=== PATIENT | male | born 1975 | race Caucasian/White ===

== ENCOUNTER 2017-03-30 11:26 | Inpatient (IN) | payer OTHER ==
[~2017-03-30] VITALS: Ht 167.6 cm; Wt 70.8 kg
[~2017-03-30 11:26] MED LIST: MOTRIN800 MG PO; PERCOCET 325 MG1 TA2 PO; ZOFRAN ODT4 MG PO
--- NOTE | 2017-03-30 11:38 | NUR ---
PT ANATOLIYA FROM WORK S/P SYNCOPAL EPISODE. STATES HE WAS WALKING TO THE BATHROOM WHEN HE STARTED TO FEEL DIZZY. REPORTS THAT HE SAT DOWN AND THEN WOKE UP LAYING DOWN WITH HIS FEET UP IN THE AIR. CO-WORKERS STATED THAT HE WAS OUT FOR ABOUT 30 SECONDS AND DENIED ANY SEIZURE-LIKE ACTIVITY. DENIES ANY CP, FELT SOB AT THE TIME. DENIES ANY N/V CURRENTLY. PER EMS FACTORY HAD A STRONG SMELL OF OIL AND FUMES PRESENT. RA SAT 99%.
--- NOTE | 2017-03-30 11:42 | NUR ---
PORT CXR IN TO EVAL.
[2017-03-30 11:48] LABS: ABSOLUTE BASOPHIL COUNT 0 /CUMM (0.0-0.2); ABSOLUTE EOSINOPHIL COUNT 0.1 /CUMM (0.0-0.7); ABSOLUTE GRANULOCYTE CT 6.5 /CUMM (1.4-6.5); ABSOLUTE LYMPH COUNT 1.7 /CUMM (1.2-3.4); ABSOLUTE MONOCYTE COUNT 0.1 /CUMM (0.10-0.60); BASOPHIL % 0.3 % (0.0-2.0); EOSINOPHIL % 0.6 % (0-5); GRANULOCYTE % 77.4 % (42.2-75.2); HEMATOCRIT 38.8 % (42-52); MEAN CORPUSCULAR HGB 25.8 PG (27.0-31.0); MEAN CORPUSCULAR HGB CONC 33.2 G/DL (33.0-37.0); MEAN CORPUSCULAR VOLUME 77.9 FL (80.0-94.0); PLATELET COUNT 487 /CUMM (130-400); RED BLOOD CELL CT 4.99 /CUMM (4.70-6.10); WHITE BLOOD CELL COUNT 8.4 /CUMM (4.8-10.8)
[2017-03-30] MEDS ORDERED: DIOVAN160 MG PO (12:09)
[2017-03-30] MEDS ORDERED: HYDROCHLOROTH12.5 M3 PO (12:09)
[2017-03-30] MEDS ORDERED: FENOFIBRATE145 M1 PO (12:09)
--- NOTE | 2017-03-30 12:11 | ED AMS/SEIZURE/WEAK/DIZZY ---
See Addendum History of Present Illness General Chief Complaint: Syncope and Near-Syncope Stated Complaint: BIBA SYNCOPAL EPISODE Source: patient Exam Limitations: no limitations Allergies Coded Allergies: NO KNOWN ALLERGIES (12/31/14) Reconcile Medications Fenofibrate Nanocrystallized (Fenofibrate) 145 MG TABLET 1 TAB PO DAILY CHOLESTEROL (Reported) Hydrochlorothiazide 12.5 MG CAPSULE 1 CAP PO DAILY WATER RETENTION (Reported) Valsartan (Diovan) 160 MG TABLET 1 TAB PO DAILY HEART (Reported) Triage Note: PT BIBA FROM WORK S/P SYNCOPAL EPISODE. STATES HE WAS WALKING TO THE BATHROOM WHEN HE STARTED TO FEEL DIZZY. REPORTS THAT HE SAT DOWN AND THEN WOKE UP LAYING DOWN WITH HIS FEET UP IN THE AIR. CO-WORKERS STATED THAT HE WAS OUT FOR ABOUT 30 SECONDS AND DENIED ANY SEIZURE-LIKE ACTIVITY. DENIES ANY CP, FELT SOB AT THE TIME. DENIES ANY N/V CURRENTLY. PER EMS FACTORY HAD A STRONG SMELL OF OIL AND FUMES PRESENT. RA SAT 99%. Triage Nurses Notes Reviewed? yes HPI: This patient is a 41-year-old male who presented to the emergency department today brought in by ambulance for evaluation of syncope at work. The patient reported that he was feeling dizzy, so he got up to go to the bathroom. He reported that he felt he was going to pass out, so he sat down. He reported that the symptoms was also started up to continue going to the bathroom, felt like he was 1 pass out again, sat down, and it was lasting that he remembers. His coworkers said that he was out for approximately 30 seconds with no seizure- like activity. The patient did not hit his head. He reported the dizziness has resolved. He reported that this has happened to him since he was a child with these dizzy spells. He does not know if he has never passed out from them or not before. He reported that he was feeling nauseous. He gets a discomfort going from his chest up to his neck. He reported that he feels, "weird." The patient denied any visual changes or blurry vision. No vomiting or abdominal pain. He denied any difficulty breathing. (CRUZ ELIZONDO,ANA MARIA) Vital Signs & Intake/Output Vital Signs & Intake/Output Vital Signs Date Time Temp Pulse Resp B/P B/P Pulse O2 O2 Flow FiO2 Mean Ox Delivery Rate 05/02 0800 Room Air 03/31 0759 98.4 69 16 120/98 95 Room Air 03/31 0143 97.9 76 20 100/70 98 Room Air 03/30 1737 98.2 87 15 109/70 98 Room Air 03/30 1732 Room Air 03/30 1627 Room Air 03/30 1625 97.0 86 22 120/81 Room Air 03/30 1506 96.7 82 18 112/71 97 Room Air 03/30 1236 108 16 94/59 97 Room Air 03/30 1128 97.0 110 18 114/64 99 Room Air ED Intake and Output 03/31 0000 03/30 1200 Intake Total 1420 Output Total Balance 1420 Intake, IV 1300 Intake, Oral 120 Patient 156 lb 156 lb Weight Weight Reported by Patient Reported by Patient Measurement Method Past History Travel History Traveled to [place] past 21 day No Medical History Any Pertinent Medical History? see below for history Cardiovascular: hypertension Renal: KIDNEY STONES Surgical History Surgical History: non-contributory Psychosocial History What is your primary language Lao Tobacco Use: Never used Family History Hx Contributory? No (ANA MARIA ARROYO PA-C) Review of Systems Review of Systems Constitutional: Reports: no symptoms. EENTM: Reports: no symptoms. Respiratory: Reports: no symptoms. Cardiovascular: Reports: no symptoms. GI: Reports: see HPI. Genitourinary: Reports: no symptoms. Musculoskeletal: Reports: no symptoms. Skin: Reports: no symptoms. Neurological/Psychological: Reports: see HPI. All Other Systems: Reviewed and Negative (ANA MARIA ARROYO PA-C) Physical Exam Physical Exam General Appearance: well developed/nourished, no apparent distress, alert, awake Comments: Well-developed well-nourished person in no acute distress HEENT: Normal EENT exam, head normocephalic/atraumatic with no bony deformities or step-offs of the skull, no tenderness to palpation over the scalp, moist mucous membranes PERRLA bilaterally. EOMI with no nystagmus Nose is atraumatic. Neck: Supple, no lymphadenopathy. No midline tenderness. Full range of motion Back: Normal inspection Cardiovascular: Regular rate and rhythm with no murmurs, rubs, or gallops. No carotid bruits Respiratory: No respiratory distress. Chest nontender. Lungs clear to auscultation bilaterally with no wheezes, rales, rhonchi Abdomen: Soft, nontender and nondistended Extremity: Normal and equal pulses. Neuro: Alert oriented x3, motor sensory normal, cranial nerves II through XII grossly intact. Skin: No appreciable rash on exposed skin, skin is warm and dry. Psych: Mood and affect is normal, memory and judgment is normal. Core Measures ACS in differential dx? Yes CVA/TIA Diagnosis: No Severe Sepsis Present: No Septic Shock Present: No (CRUZ ELIZONDO,ANA MARIA) Progress Differential Diagnosis: arrythmia, alcohol intoxication, anemia, benign positional vertigo, CVA/stroke, dehydration, drug intoxication, encephalitis, electrolyte imbalance, GI bleed, hypoglycemia, hypoxia, intracranial Hem., intracranial mass/tumor, labrynthitis, meningitis, Meniere's disease, migraine DHALIWAL, multiple sclerosis, pneumonia, postural hypotension, sepsis, seizure disorder, subarachnoid Hem., UTI/pyelo, vertebrobasilar insuff Diagnostic Imaging: Viewed by Me: Radiology Read, CT Scan. Discussed w/RAD: Radiology Read, CT Scan. Radiology Impression: PATIENT: RUTHY TERESA PRESENT AGE: 41 PATIENT ACCOUNT NO: [id number] : 73 LOCATION: [facility] ORDERING PHYSICIAN: ANA MARIA ARROYO PA-C SERVICE DATE: 03/30/17 EXAM TYPE: CAT - CT HEAD WO IV CONTRAST EXAMINATION: CT HEAD WITHOUT CONTRAST CLINICAL INFORMATION: Syncope and dizziness. Evaluate for intracranial hemorrhage. COMPARISON: No relevant prior imaging is available. TECHNIQUE: Contiguous axial imaging was performed from the skull base to vertex without intravenous administration of contrast. DLP: 600.71 mGy-cm FINDINGS: There is no acute intracranial hemorrhage or abnormal extra-axial collection. No intracranial mass effect or midline shift. Lateral and third ventricles are normal. No hydrocephalus. Morse-white matter differentiation is preserved and there is no evidence of acute territorial infarct. The calvarium and skull base are intact. Mastoid air cells and middle ear cavities are well aerated. Visualized paranasal sinuses are well aerated. IMPRESSION: Normal CT scan of the head. DICTATED BY: BAN CAGE,FADI Abbott DATE/TIME DICTATED:03/30/171244 WHISKEY FILTERER: CINTHYA DATE/TIME TRANSCRIBED:03/30/171244 CONFIDENTIAL, DO NOT COPY WITHOUT APPROPRIATE AUTHORIZATION. <Electronically signed in Other Vendor System> SIGNED BY: FADI CEVALLOS MD 03/30/17 1250 CXR Impression: PATIENT: RUTHY TERESA PRESENT AGE: 41 PATIENT ACCOUNT NO: [id number] : 73 LOCATION: [facility] ORDERING PHYSICIAN: ANA MARIA ARROYO PA-C SERVICE DATE: 03/30/17 EXAM TYPE: RAD - XRY- PORTABLE CHEST XRAY EXAMINATION: XR PORTABLE CHEST CLINICAL INFORMATION: Disease syncope COMPARISON: None TECHNIQUE: Portable frontal view of the chest was obtained. FINDINGS: No acute finding. Lung barajas are grossly clear. No obvious failure or infiltrate. No effusion. IMPRESSION: Negative acute portable chest DICTATED BY: LEON ROGEL MD DATE/TIME DICTATED:03/30/171205 WHISKEY FILTERER:CINTHYA DATE/TIME TRANSCRIBED:03/30/171205 CONFIDENTIAL, DO NOT COPY WITHOUT APPROPRIATE AUTHORIZATION. <Electronically signed in Other Vendor System> SIGNED BY: LEON ROGEL MD 03/30/17 120 Initial ED EKG: normal axis, normal intervals, normal sinus rhythm, no ST T wave changes, 96 BPM Comments: 03/30/2017 1:32:43 PM: DR FRANCIS AT THE BEDSIDE FOR [id number] EVALUATION (CRUZ ELIZONDO,ANA MARIA) Plan of Care: Orders Procedure Date/time Status MISTAKE 03/31 0600 Active CBC WITHOUT DIFFERENTIAL 03/31 0600 Complete BASIC ELECTROLYTES PLUS BUN&CR 03/31 0600 Complete Hemoccult 03/31 UNK Active Heart Healthy Diet 03/30 D Active TROPONIN LEVEL 03/30 1800 Complete PROLACTIN 03/30 1800 Complete EKG 03/30 1800 Active Vital Signs 03/30 1728 Active Teach/Educate 03/30 172 Active Pain Treatment and Response 03/30 172 Active Nutritional Intake, Monitor 03/30 172 Active Isolation 03/30 1728 Active Intake & Output 03/30 1728 Active Patient Care Conference 03/30 1728 Active Activity/Ambulation 03/30 1728 Active Change service to 03/30 1710 Active Patient Data 03/30 1552 Active URINALYSIS 03/30 1543 Complete ELECTROENCEPHALOGRAM 03/30 1539 Complete Telemetry/Admissions Assistant 03/30 1516 Active Add-on Test (ER Only) 03/30 1432 Active ED Holding Orders 03/30 1411 Active Admit to inpatient 03/30 1411 Active Code Status 03/30 1411 Active Pathway - chart 03/30 1406 Active Code Status 03/30 1406 Complete Patient Data 03/30 1354 Active Add-on Test (ER Only) 03/30 1302 Active URINE DRUGS OF ABUSE 03/30 1302 Complete Intake & Output 03/30 1224 Active Add-on Test (ER Only) 03/30 1211 Active MIXED VENOUS BLOOD GAS (GEN) 03/30 1157 Active MISTAKE 03/30 1157 Active TOTAL IRON BINDING CAPACITY 03/30 1137 Complete PROLACTIN 03/30 1137 Complete FERRITIN 03/30 1137 Complete SERUM IRON 03/30 1137 Complete ETHANOL 03/30 1137 Complete TROPONIN LEVEL 03/30 1133 Complete COMPREHENSIVE METABOLIC PANEL 03/30 1133 Complete CBC WITHOUT DIFFERENTIAL 03/30 1133 Complete EKG 03/30 1133 Active House Staff 03/30 UNK Active VTE Mechanical Prophylaxis 03/30 UNK Active Current Medications Sig/Issac Start time Last Medication Dose Stop Time Status Admin Fenofibrate 145 MG DAILY 03/31 1000 AC 03/31 (Tricor) 0920 Heparin Sodium 5,000 UNIT Q8 03/30 2200 AC 03/31 (Porcine) 0604 Acetaminophen 650 MG Q6 03/30 1800 AC (Tylenol) Sodium Chloride 1,000 ML Q10H 03/30 1515 AC 03/31 (Normal Saline 0.9%) 03/31 1114 0604 Laboratory Tests 03/31/17 0628: Anion Gap 11, Estimated GFR > 60, BUN/Creatinine Ratio 15.5, CBC w Diff NO MAN DIFF REQ, RBC 4.56 L, MCV 78.8 L, MCH 25.3 L, RDW 14.4, MPV 9.5, Gran % 42.6, Lymphocytes % 47.0, Monocytes % 6.5, Eosinophils % 2.7, Basophils % 1.2, Absolute Granulocytes 2.7, Absolute Lymphocytes 3.0, Absolute Monocytes 0.4, Absolute Eosinophils 0.2, Absolute Basophils 0.1, PUBS MCHC 32.2 L 03/30/17 1818: Troponin I < 0.01, Prolactin 16.5 03/30/17 1520: Urine Opiates Screen < 100.00, Methadone Screen < 40, Barbiturate Screen < 60, Ur Phencyclidine Scrn < 6.00, Amphetamines Screen < 100, U Benzodiazepines Scrn < 85, Urine Cocaine Screen < 50, Urine Cannabis Screen < 5.00, Urine Color YEL, Urine Clarity CLEAR, Urine pH 6.0, Ur Specific Adams 1.020, Urine Protein NEG, Urine Ketones NEG, Urine Nitrite NEG, Urine Bilirubin NEG, Urine Urobilinogen 1.0, Ur Leukocyte Esterase NEG, Ur Microscopic EXAM NOT REQUIRED, Urine Hemoglobin NEG, Urine Glucose NEG 03/30/17 1137: Anion Gap 18 H, Estimated GFR 44 L, BUN/Creatinine Ratio 14.7, Glucose 131 H, Calcium 10.4 H, Iron 62, TIBC 372, Ferritin 207.0, Total Bilirubin 0.5, AST 35, ALT 38, Alkaline Phosphatase 67, Troponin I < 0.01, Total Protein 8.2, Albumin 4.6, Globulin 3.6, Albumin/Globulin Ratio 1.3, Prolactin 25.9 H, CBC w Diff NO MAN DIFF REQ, RBC 4.99, MCV 77.9 L, MCH 25.8 L, RDW 14.0, MPV 9.0, Gran % 77.4 H, Lymphocytes % 20.6, Monocytes % 1.1 L, Eosinophils % 0.6, Basophils % 0.3, Absolute Granulocytes 6.5, Absolute Lymphocytes 1.7, Absolute Monocytes 0.1 L, Absolute Eosinophils 0.1, Absolute Basophils 0, PUBS MCHC 33.2, Serum Alcohol < 10.0 Departure Departure Disposition: STILL A PATIENT Condition: Stable Clinical Impression Primary Impression: Seizure-like activity Secondary Impressions: Acute kidney injury, Orthostatic hypotension Referrals: ELIOT HUFFMAN MD Departure Forms: Customer Survey General Discharge Information Admission Note Spoke With: HOUSTON CAGE,ALIYA Documentation of Exam: Documentation of any treatments & extenuating circumstances including Concerns Regarding Discharge (functional status, medication knowledge or non-compliance, living conditions, etc.) that warrant an admission rather than observation: [ This patient is a 41 year old male with a history of hypetension who presented for evaluation of syncope. Acute kidney injury. Patient is orthostatic. Tachycardic. Elevated prolactin. This patient should be admitted for neurology consult, EEG, tend labs, possible head MRI, gentle hydration, and close monitoring. This patient is a poor candiate for outpatient treatment. Premature discharge could prove medically harmful.] (CRUZ ELIZONDO,ANA MARIA) PA/COUNTY OR CITY AUDITOR Co-Sign Statement Statement: ED Attending supervision documentation- [X] I saw and evaluated the patient. I have also reviewed all the pertinent lab results and diagnostic results. I agree with the findings and the plan of care as documented in the PA's/COUNTY OR CITY AUDITOR's documentation. [] I have reviewed the ED Record and agree with the PA's/COUNTY OR CITY AUDITOR's documentation. [] Additions or exceptions (if any) to the PAs/COUNTY OR CITY AUDITOR's note and plan are summarized below: [] (LEON FRANCIS DO)
--- NOTE | 2017-03-30 12:50 | CT SCAN REPORT ---
EXAMINATION: CT HEAD WITHOUT CONTRAST CLINICAL INFORMATION: Syncope and dizziness. Evaluate for intracranial hemorrhage. COMPARISON: No relevant prior imaging is available. TECHNIQUE: Contiguous axial imaging was performed from the skull base to vertex without intravenous administration of contrast. DLP: 600.71 mGy-cm FINDINGS: There is no acute intracranial hemorrhage or abnormal extra-axial collection. No intracranial mass effect or midline shift. Lateral and third ventricles are normal. No hydrocephalus. Morse-white matter differentiation is preserved and there is no evidence of acute territorial infarct. The calvarium and skull base are intact. Mastoid air cells and middle ear cavities are well aerated. Visualized paranasal sinuses are well aerated. IMPRESSION: Normal CT scan of the head.
--- NOTE | 2017-03-30 14:01 | History & Physical ---
PONCHO CAGE,EVE 03/30/17 1400: General Information and HPI MD Statement: I have seen and personally examined RUTHY TERESA and documented this H&P. The patient is a 41 year old M who was BIBA for syncope. Source of Information: patient, family Exam Limitations: no limitations History of Present Illness: 41 yo Female with past medical history of HTN, HLD was BIBA with complaints of dizziness and passing-out. According to the patient, he was in his usual state of health until this morning , while at work he experienced an episode of dizziness and lost consciousness. He does not particularly remember the time when it happened, but it started with dizziness and he tried sitting down for a while, and when he stood up but dizzy again. He tried to go to the bathroom, but before he can remember anything else he passed out. Witnesses said it lasted less than a minute, and he did not have abnormal limb movements, up rolling of eyes, frothing from mouth, bowel or bladder incontinence, confusion after regaining consciousness. He denies having chest pain, agitation, shortness of breath, sweating, vomiting before or after the incident. He admitted to feeling nauseous before the incident, and a discomfort in the epigastric region which moved up to his throat, although he denied any kind of chest pain. He drinks coffee every day. Of note, he mentioned he had similar episodes multiple times in the past since childhood, which his mother had told him could be seizures but has never been worked up in that line. The last similar incident he had was 2 months ago. He denies any headache, fever, chills, swelling of legs, bowel or bladder changes, abdominal pain, recent travel, sick contacts. His primary care physician is from [facility], doesn't remember the name currently. He doesn't have a sales porter or neurologist. Allergies/Medications Allergies: Coded Allergies: NO KNOWN ALLERGIES (12/31/14) Home Med list Fenofibrate Nanocrystallized (Fenofibrate) 145 MG TABLET 1 TAB PO DAILY CHOLESTEROL (Reported) Hydrochlorothiazide 12.5 MG CAPSULE 1 CAP PO DAILY WATER RETENTION (Reported) Valsartan (Diovan) 160 MG TABLET 1 TAB PO DAILY HEART (Reported) Past History Travel History Traveled to [place] past 21 day No Medical History Cardiovascular: hypertension Renal: KIDNEY STONES Surgical History Surgical History: urolithotripsy Past Family/Social History Psychosocial History Where do you live? Home Who Do You Live With? spouse Services at Home: None Primary Language: Czech Smoking Status: Never Smoked ETOH Use: denies use Illicit Drug Use: denies illicit drug use Functional Ability ADLs Independent: dressing, eating, toileting, bathing. Ambulation: independent IADLs Independent: shopping, housework, finances, food prep, telephone, transportation , medication admin. 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 EENTM: Reports: no symptoms. Cardiovascular: Reports: no symptoms, see HPI. Respiratory: Reports: no symptoms, see HPI. GI: Reports: no symptoms. Genitourinary: Reports: no symptoms. Musculoskeletal: Reports: see HPI, back pain. Skin: Reports: no symptoms. Neurological/Psychological: Reports: see HPI (LOC). Denies: anxiety, ataxia, confusion, headache, numbness, paresthesia, tremors, unable to move lower ext, unable to move upper ext. Hematologic/Endocrine: Reports: no symptoms. All Other Systems: Reviewed and Negative Exam & Diagnostic Data Last 24 Hrs of Vital Signs/I&O Vital Signs Date Time Temp Pulse Resp B/P B/P Pulse O2 O2 Flow FiO2 Mean Ox Delivery Rate 03/30 1236 108 16 94/59 97 Room Air 03/30 1128 97.0 110 18 114/64 99 Room Air Intake & Output 03/30 1600 03/30 0800 03/30 0000 Intake Total 1000 Output Total Balance 1000 Intake, IV 1000 Patient 70.76 kg Weight Weight Reported by Patient Measurement Method Last 24 Hrs of Labs/Raymond: Laboratory Tests 03/30/17 1137: Anion Gap 18 H, Estimated GFR 44 L, BUN/Creatinine Ratio 14.7, Glucose 131 H, Calcium 10.4 H, Iron 62, TIBC 372, Ferritin Pending, Total Bilirubin 0.5, AST 35, ALT 38, Alkaline Phosphatase 67, Troponin I < 0.01, Total Protein 8.2, Albumin 4.6, Globulin 3.6, Albumin/Globulin Ratio 1.3, Prolactin 25.9 H, CBC w Diff NO MAN DIFF REQ, RBC 4.99, MCV 77.9 L, MCH 25.8 L, RDW 14.0, MPV 9.0, Gran % 77.4 H, Lymphocytes % 20.6, Monocytes % 1.1 L, Eosinophils % 0.6, Basophils % 0.3, Absolute Granulocytes 6.5, Absolute Lymphocytes 1.7, Absolute Monocytes 0.1 L, Absolute Eosinophils 0.1, Absolute Basophils 0, PUBS MCHC 33.2 , Serum Alcohol < 10.0 Diagnostic Data EKG Results NSR, regular rate at 96, MS- 176, QTC- 435, QRS- 80, no ST-T changes CXR Results FINDINGS: No acute finding. Lung barajas are grossly clear. No obvious failure or infiltrate. No effusion. IMPRESSION: Negative acute portable chest DICTATED BY: LEON ROGEL MD DATE/TIME DICTATED:03/30/171205 ENVIRONMENTAL OFFICER:RADNadyaNAJERA DATE/TIME TRANSCRIBED:03/30/1712[address] Head: FINDINGS: There is no acute intracranial hemorrhage or abnormal extra-axial collection. No intracranial mass effect or midline shift. Lateral and third ventricles are normal. No hydrocephalus. Morse-white matter differentiation is preserved and there is no evidence of acute territorial infarct. The calvarium and skull base are intact. Mastoid air cells and middle ear cavities are well aerated. Visualized paranasal sinuses are well aerated. IMPRESSION: Normal CT scan of the head. DICTATED BY: BAN CAGE,FADI Abbott DATE/TIME DICTATED:03/30/171244 ENVIRONMENTAL OFFICER:NAJERA DATE/TIME TRANSCRIBED:03/30/171244 Assessment/Plan Assessment: 41 yo Female with past medical history of HTN, HLD was BIBA with complaints of dizziness and passing-out. Currently he is being managed in telemetry floor for the following issues: #Syncope Differentials considered: Cardiac, neurogenic, orthostatic. Currently, the symptoms, signs, lab values with high BEP and high creatinine, and orthostatics positive, the cause of syncope is most likely due to dehydration leading to orthostatic hypotension. We will proceed as follows to rule out other causes of syncope as well: -IV fluids to correct dehydration -monitor telemetry events, vitals -Repeat orthostatics -Rule out ACS by repeating troponin and EKG hold blood pressure medications for now -Rule out seizure with EEG and prolactin -Hold blood pressure medications for now -Rule out GI bleed with stool guaiac each bowel movement -Consider echocardiogram in the morning as a workup for syncope, and cardiology consult/neurology consult accordingly. #Acute kidney injury Patient's BUN is 25 and creatinine is 1.7, indicating dehydration. He doesn't have any nephrotoxic drugs, and is urinating well without any signs/symptoms of obstruction. His BUN is above normal limits thus can be defined as acute kidney injury. -Continue IV fluids for now -Recheck BEP in the morning #Mild anemia With rehydration, his anemia might become more prominent, and exploring the causes might help us find the cause of syncope as well. Will guaiac all stools to rule out any GI bleeding. Follow-up iron studies. #Heart healthy diet #DVT prophylaxis with subcutaneous heparin #CODE STATUS full code As Ranked By This Provider Problem List: 1. Syncope Qualifiers Syncope type: unspecified Qualified Code: R55 - Syncope and collapse 2. Orthostatic hypotension 3. Acute kidney injury 4. Kidney stones Core Measures/Miscellaneous Acute Coronary Syndrome ACS Diagnosis: No Cerebrovascular Accident CVA/TIA Diagnosis: No Congestive Heart Failure CHF Diagnosis: No Venous Thromboembolism VTE Risk Factors: Age > 40 No Mech VTE prophylaxis d/t: No contraindications No VTE Pharm Prophylaxis d/t: Renal impairment VTE Diagnosis: No VTE Type: NONE VTE Confirmed by (Test): NONE Severe Sepsis Severe Sepsis Present: No Septic Shock Septic Shock Present: No Miscellaneous Documentation Attending Case Discussed With: Salas Cueto Primary Care Physician: AWILDA VELASCO APRN Patient sees these Specialists Internal medicine Level of Patient Care: Telemetry CALEB BOND 03/30/17 1518: Resident Review Statement Resident Statement: examined this patient, discussed with internal medicine nurse practitioner, agreed with internal medicine nurse practitioner, discussed with family, reviewed images, amended to note Other Findings: 41 yr old man with pmh of htn, HLP, childhood seizure?, kidney stones, who was bourght to the hospital with cc of syncope. 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 However after that he had one episode of syncope with loss of consciousness for 30 minutes with feeling pressure in his chest without any vomiting, headache, palpitations, loss of urinary or bowel control, bitten tongue, generalized extremities movement. He does about a month nausea and sweating during the episode. Patient reports of lower intake and low frequency of urine and he also does report of having these spells. Patient denies any fever, chills, recent trauma, recent travel, abdominal pain, melena, bloody urine. Orthostatic vital signs are positive and physical exam was unremarkable details are above Notable labs showed creatinine 1.7, baseline 1, BUN 25, hemoglobin 10.9, AG 18, HCO3 20, calcium 10.4, prolactin 25, first set of troponin was WNL Chest x-ray and head CT did not show any acute pathology EKG showed pulse rate 96, sinus rhythm, QTC 435, no acute ST-T changes Assessment and plan #Syncope -Possibly due to dehydration -Hold hydrochlorothiazide and Diovan for now -Aggressive hydration with bolus normal saline and maintenance fluids -EEG to rule out any seizure activity -Troponin and EKG 2 -Check prolactin the afternoon -Check orthostatics in the morning -Stool guaiac to rule out any bleeding -Iron studies were WNL -We'll try to get the records from outpatient settings #Hyperlipidemia -Continue fenofibrate #Full code, DVT prophylaxis is mechanical subcutaneous heparin, Tylenol for pain , heart healthy diet SALAS CUETO MD 03/30/17 3518: Attending MD Review Statement Attending Statement Attending MD Statement: examined this patient, discuss w/resident/PA/SURGICAL TRAINING SPECIALIST, agreed w/resident/PA/SURGICAL TRAINING SPECIALIST, reviewed EMR data (avail), discussed with nursing, reviewed images, amended to note Attending Assessment/Plan: The patient is a 41 yo male with h/o HTN and nephrolithiasis (s/p prior lithotripsy) and hyperlipidemia who presented on the day of admission in the ED with c/o feeling light headed and syncope. He did report some antecedent epigastric discomfort and nausea. He stated that he was once told as a child he may have had seizures. In the ED was found to be orthostatic with BUN/Cr significantly above baseline. He denied any fever, persistent epigastric pain, chest pain, dyspnea. Physical Exam: VS: T 97.0, BP 94/59, P 108, PO 97% RA HEENT: eyes- PERRLA, EOMI mini- dry mucosa Neck: no JVD or bruits Chest: Clear Cor: RRR, nl S1, S2 w/o murm Abd: BS+, soft, NT, - HSM Ext: no edema, pulses 2+ Neuro: non-focal, alert & oriented x 3 Labs/Tests- as above. Impression/Plan: #S/P Syncope- most likely secondary to low BP/orthostasis. Doubt arrhythmia or seizure. Does have elevated Prolactin level. Plan: Admit to telemetry- evaluate for arrhythmia. Seizure precautions, check EEG. Treat orthostasis. Follow-up Prolactin level. #Orthostasis- most likely secondary to volume depletion due to HCTZ and diminished po intake. BUN/Cr elevated. Plan: Agree with NS IV hydration and follow. Hold HCTZ/ARB. #Acute Kidney Injury- with BUN/Cr 25/1.7 compared with baseline 14/1.0. Most likely secondary to volume depletion. Has h/o nephrolithiasis, however no clinical obstructive symptoms. Plan: Will observe response to IV hydration. Check U/A. If not decreasing will consider renal US> #Anemia- as per patient this is chronic and was being worked up by PCP. Plan: Check with PCP regarding prior OP workup. Heme test stools. Note H/H will decrease with hydration. #HTN- BP is low at present. Plan: As above, hold anti-hypertensives. Consider restart ARB w/o HCTZ as BP rises. #HL- on Fenofibrate. Plan: Will continue.
--- NOTE | 2017-03-30 14:15 | NUR ---
HOUSE STAFF TO KENRICK.
--- NOTE | 2017-03-30 15:24 | NUR ---
URINE SPECIMEN OBTAINED AND TRIO SENT TO LAB
--- NOTE | 2017-03-30 15:33 | NUR ---
PT TO ROOM 187 BED 1
--- NOTE | 2017-03-30 16:15 | PN- Student ---
Subjective Subjective: CC: syncope Source: patient and HPI: Mr. Todd is a 41 yo M who was BIBA around 11 am after having a syncopal episode at work. Patient states that he started to feel dizzy while working so he attempted to walk to the bathroom to rest. He ended up stopping before getting to the bath room to sit due to increase in symptoms. When he stood up again to attempt to finish walking to the bathroom he passed out (lost consciousness) and woke up lying on the ground with his legs elevated. The loss of consiousness lasted approximately 30 seconds, as told by coworkers. Mr. Todd stated that he felt short of breath at the time of the episode and had a chest discomfort starting at his epigastric area extending to his throat. He reports feeling a little nauseated during the episode but denies losing bladder or bowel control, having abdominal pain, vision changes, vomitting, hitting his head, or having a seizure. Upon further questioning Mr. Todd stated that he has had this problem with similar episodes since he was a child, although he isnt sure if he' s ever passed out before. He also stated that each episode occurred while he was working or exerting himself. Medications: -Fenofibrate- 145mg PO daily for cholesterol -Hydrochlorothiazide- 12.5 mg PO daily for HTN -Valsartan- 160 mg PO daily for HTN and Heart PMHx: History of HTN diagnosed over 10 years ago. Also has a history of frequent kidney stones with the last one being 2 years ago and requiring removal and a stent placement. Denies any other cardiac hx, lung issues, or abdominal issues. No past neurological hx. Allergies: NKA/NKDA FHx: father- CAD, CABG x 3 SHx: kidney stone removal and stent placement Social Hx: denies every smoking or using tobacco, denies alcohol, OTCs or recreational drugs. 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 ROS: constitutional- no symptoms HEENT- no symptoms Respiratory- no symptoms CV- no symptoms GI- no symptoms - decreased urinary frequency and volume, states he doesnt drink much water. Msk- no symptoms Skin- no symptoms Neurological/Psych- frequent syncope Objective Objective: Vital Signs Date Time Temp Pulse Resp B/P B/P Pulse O2 O2 Flow FiO2 Mean Ox Delivery Rate 03/30 1506 96.7 82 18 112/71 97 Room Air 03/30 1236 108 16 94/59 97 Room Air 03/30 1128 97.0 110 18 114/64 99 Room Air Intake & Output 03/30 1600 03/30 0800 03/30 0000 Intake Total 1000 Output Total Balance 1000 Intake, IV 1000 Patient 156 lb Weight Weight Reported by Patient Measurement Method PE: General- well nourished male that does not appear overweight. No acute distress. HEENT- atraumatic, MIRIAM, Membranes moist and pink. Neck-supple, no JVD, trachea midline, no lymphadenopathy or thyromegaly. CV- S1 and S2 appreciated, no murmurs or gallops. Good peripheral pulses, no edema, no carotid bruits Respiratory- vesicular breath sounds heard throughout, no distress. Good air flow Abd- bowel sounds appreciated, soft and non tender to palpation. No distention or lesions noted. Ext- Strength 5/5 with all four extremities, no deformity or lesions noted. Skin- well perfused and warm, no lesions noted. Neuro- Cranial nerves II-XII intact, no visual disturbances. Sensation normal throughout. Psych- good mental state noted, mood and affect normal. Results Results: Laboratory Tests 03/30/17 1520: Urine Opiates Screen < 100.00, Methadone Screen < 40, Barbiturate Screen < 60, Ur Phencyclidine Scrn < 6.00, Amphetamines Screen < 100, U Benzodiazepines Scrn < 85, Urine Cocaine Screen < 50, Urine Cannabis Screen < 5.00, Urine Color Pending, Urine Clarity Pending, Urine pH Pending, Ur Specific [place] Pending, Urine Protein Pending, Urine Ketones Pending, Urine Nitrite Pending, Urine Bilirubin Pending, Urine Urobilinogen Pending, Ur Leukocyte Esterase Pending, Ur Microscopic Pending, Urine Hemoglobin Pending, Urine Glucose Pending 03/30/17 1137: Anion Gap 18 H, Estimated GFR 44 L, BUN/Creatinine Ratio 14.7, Glucose 131 H, Calcium 10.4 H, Iron 62, TIBC 372, Ferritin 207.0, Total Bilirubin 0.5, AST 35, ALT 38, Alkaline Phosphatase 67, Troponin I < 0.01, Total Protein 8.2, Albumin 4.6, Globulin 3.6, Albumin/Globulin Ratio 1.3, Prolactin 25.9 H, CBC w Diff NO MAN DIFF REQ, RBC 4.99, MCV 77.9 L, MCH 25.8 L, RDW 14.0, MPV 9.0, Gran % 77.4 H, Lymphocytes % 20.6, Monocytes % 1.1 L, Eosinophils % 0.6, Basophils % 0.3, Absolute Granulocytes 6.5, Absolute Lymphocytes 1.7, Absolute Monocytes 0.1 L, Absolute Eosinophils 0.1, Absolute Basophils 0, PUBS MCHC 33.2, Serum Alcohol < 10.0 Assessment/Plan Assessment: Mr. Todd most likely suffered from an episode of syncope due to orthostatic hypotension. His lack of water intake and low blood pressure on admission seem to support that conclusion, as does the lab results. Differentials include underlying cardiogenic syncope, neurogenic syncope, and possible LISS. Laboratory Tests 03/30 03/30 1520 1137 Chemistry Sodium (137 - 145 mmol/L) 145 Potassium (3.5 - 5.1 mmol/L) 4.0 Chloride (98 - 107 mmol/L) 108 H Carbon Dioxide (22 - 30 mmol/L) 20 L Anion Gap (5 - 16) 18 H BUN (9 - 20 mg/dL) 25 H Creatinine (0.7 - 1.2 mg/dL) 1.7 H Estimated GFR (>60 ml/min) 44 L BUN/Creatinine Ratio (7 - 25 %) 14.7 Glucose (65 - 99 mg/dL) 131 H Calcium (8.4 - 10.2 mg/dL) 10.4 H Iron (49 - 181 ug/dL) 62 TIBC (261 - 462 ug/dL) 372 Ferritin (17.9 - 464 ng/mL) 207.0 Total Bilirubin (0.2 - 1.3 mg/dL) 0.5 AST (17 - 59 U/L) 35 ALT (21 - 72 U/L) 38 Alkaline Phosphatase (< 127 U/L) 67 Troponin I (<0.11 ng/ml) < 0.01 Total Protein (6.3 - 8.2 g/dL) 8.2 Albumin (3.5 - 5.0 g/dL) 4.6 Globulin (1.9 - 4.2 gm/dL) 3.6 Albumin/Globulin Ratio (1.1 - 2.2 %) 1.3 Prolactin (3.7 - 17.9 ng/mL) 25.9 H Hematology CBC w Diff NO MAN DIFF REQ WBC (4.8 - 10.8 /CUMM) 8.4 RBC (4.70 - 6.10 /CUMM) 4.99 Hgb (14.0 - 18.0 G/DL) 12.9 L Hct (42 - 52 %) 38.8 L MCV (80.0 - 94.0 FL) 77.9 L MCH (27.0 - 31.0 PG) 25.8 L RDW (11.5 - 14.5 %) 14.0 Plt Count (130 - 400 /CUMM) 487 H MPV (7.4 - 10.4 FL) 9.0 Gran % (42.2 - 75.2 %) 77.4 H Lymphocytes % (20.5 - 51.1 %) 20.6 Monocytes % (1.7 - 9.3 %) 1.1 L Eosinophils % (0 - 5 %) 0.6 Basophils % (0.0 - 2.0 %) 0.3 Absolute Granulocytes (1.4 - 6.5 /CUMM) 6.5 Absolute Lymphocytes (1.2 - 3.4 /CUMM) 1.7 Absolute Monocytes (0.10 - 0.60 /CUMM) 0.1 L Absolute Eosinophils (0.0 - 0.7 /CUMM) 0.1 Absolute Basophils (0.0 - 0.2 /CUMM) 0 PUBS MCHC (33.0 - 37.0 G/DL) 33.2 Toxicology Urine Opiates Screen (>2000 NG/ML) < 100.00 Methadone Screen (>300 NG/ML) < 40 Barbiturate Screen (>200 NG/ML) < 60 Ur Phencyclidine Scrn (>25 NG/ML) < 6.00 Amphetamines Screen (>1000 NG/ML) < 100 U Benzodiazepines Scrn (>200 NG/ML) < 85 Urine Cocaine Screen (>300 NG/ML) < 50 Urine Cannabis Screen (>50 NG/ML) < 5.00 Serum Alcohol (<10 MG/DL) < 10.0 Urines Urine Color Pending Urine Clarity Pending Urine pH Pending Ur Specific [place] Pending Urine Protein Pending Urine Ketones Pending Urine Nitrite Pending Urine Bilirubin Pending Urine Urobilinogen Pending Ur Leukocyte Esterase Pending Ur Microscopic Pending Urine Hemoglobin Pending Urine Glucose Pending Plan: His labs show volume depletion which is consistent with syncope due to orthostatic hypotension. Treatment plan is to hold his thiazide diuretic for now and replete his fluids. We will continue to monitor his labs and possibly order an EEG to rule out seizure disorders and possibly an echocardiogram to rule out any underlying cardiac cause. Problem List: 1. Syncope- alarm security or surveillance monitor for 24 hrs 2. LISS- replete fluids and monitor creatinine and BUN 3. Recurrent kidney stones- hold HCTZ and replete fluids 4. Orthostatic Hypotension- monitor BP and I&Os Patient is Full Code
--- NOTE | 2017-03-30 16:34 | NUR ---
PT TAKEN TO EEG LAB BY TRANSPORT. ORDER STATES PT CAN BE UNMONITORED DURING PROCEDURE. MESSAGE LEFT WITH [facility] INSTRUCTED THAT PT NEEDS TO BE ON TRIM MASTER OPERATOR WITH RN DURING TRANSPORT TO TELE FLOOR
--- NOTE | 2017-03-30 16:36 | NUR ---
PT TO EEG AT 1630. OK TO BE OFF MONITOR FOR TX. TO BE ACCOMPANIED TO FLOOR WITH RN. REPORT GIVEN TO SHEKHAR SULLIVAN ON 1N AT 1635.
[2017-03-30 17:37] VITALS: BP 109/70
--- NOTE | 2017-03-30 23:08 | Admission Certification ---
Admission Certification Certification Statement - As attending physician, I certify that at the time of - admission, based on clinical presentation, severity of - symptoms, need for further diagnostic testing and - therapeutic interventions, and risk of adverse outcomes - without in-hospital treatment, in my clinical assessment, - this patient requires an acute hospital stay for a minimum - of two nights or longer. I have also considered psychsocial - factors such as support system, advanced age, financial - issues, cognitive issues, and failed out-patient treatments, - past re-admission history, safety of patient, and lack of - compliance as applicable. Specific rationale supporting this admission is: The patient presents in the ED with orthostasis, lightheadedness and s/p syncope. There is a questionable h/o seizures in past. Also had some epigastric/ chest discomfort. Needs admit to telemetry for monitor and IV hydration. Agree with hold HCTZ/ARB. EEG, seizure precautions. Obtain records from PCP.
[2017-03-31 01:43] VITALS: BP 100/70
[2017-03-31 07:59] VITALS: BP 120/98
--- NOTE | 2017-03-31 08:52 | ELECTROENCEPHALOGRAM REPORT ---
Electroencephalogram Report Electroencephalogram Results Date of service: 03/30/17 Attending MD: SAAD KESSLER MD Linter Drier Operator: Milena Marsh EEG Number: [id number] Test Utilizes: 10-20 system, 21 lead 18 channel digital recording Pertinent Hx/Physical/Neuro Findings/Clin Diagnosis: 41-year-old patient admitted for syncope, rule out seizure Inpatient Medications: Current Medications Sig/Issac Start time Last Medication Dose Route Stop Time Status Admin Acetaminophen 650 MG Q6 03/30 1800 AC PO Fenofibrate 145 MG DAILY 03/31 1000 AC PO Heparin Sodium 5,000 UNIT Q8 03/30 2200 AC / (Porcine) SC 0604 Sodium Chloride 1,000 ML Q10H 03/30 1515 AC 05/02 IV 03/31 1114 0604 Sodium Chloride 1,000 ML BOLUS ONE 03/30 1445 DC 05/ IV 03/30 1544 1459 Sodium Chloride 1,000 ML BOLUS ONE 03/30 1245 DC 05/ IV / 1344 1237 Interpretation: The waking background is dominated by low amplitude generalized beta frequency activity with some intermixed low to moderate amplitude posterior alpha noted from time to time. In drowsiness there is intermixed slower theta also generalized in pattern and occasional vertex waves drowsiness appear. No further sleep rhythms detected. No focal, lateralized or epileptiform abnormalities. Hyperventilation and photic stimulation had no additional information Impression: Normal EEG in the states of wakefulness and drowsiness. No focal or epileptiform abnormalities identified.
[2017-03-31 09:19] LABS: ABSOLUTE BASOPHIL COUNT 0.1 /CUMM (0.0-0.2); ABSOLUTE EOSINOPHIL COUNT 0.2 /CUMM (0.0-0.7); ABSOLUTE GRANULOCYTE CT 2.7 /CUMM (1.4-6.5); ABSOLUTE MONOCYTE COUNT 0.4 /CUMM (0.10-0.60); BASOPHIL % 1.2 % (0.0-2.0); EOSINOPHIL % 2.7 % (0-5); GRANULOCYTE % 42.6 % (42.2-75.2); HEMATOCRIT 35.9 % (42-52); MEAN CORPUSCULAR HGB 25.3 PG (27.0-31.0); MEAN CORPUSCULAR HGB CONC 32.2 G/DL (33.0-37.0); MEAN CORPUSCULAR VOLUME 78.8 FL (80.0-94.0); MEAN PLATELET VOLUME 9.5 FL (7.4-10.4); PLATELET COUNT 431 /CUMM (130-400); RBC DISTRIBUTION WIDTH 14.4 % (11.5-14.5); RED BLOOD CELL CT 4.56 /CUMM (4.70-6.10); WHITE BLOOD CELL COUNT 6.3 /CUMM (4.8-10.8)
--- NOTE | 2017-03-31 11:51 | Patient Discharge Instructions ---
Discharge Instructions General Discharge Information You were seen/treated for: Syncope LISS, secondary to dehydration 1st degree heart block Special Instructions: Please follow up with your PCP within ellen-ten days of discharge. You blood pressure medication is on hold for now due to low blood pressure while in the hospital. Please try to get BP reading after discharge and follow up with either PCP or door repairer bus to restart your BP medication. Please follow up with door repairer bus within ten days of discharge, plan for Echocardiogram can be done upon follow up. A referral has been given to you below. Please follow up with Neurology with EEG within seven days of discharge. Referral per your PCP. Please return to emergency if symptoms worsen. Diet Continue normal diet: Yes Recommended Diet: Heart Healthy Activity Full Activity/No Limits: Yes Activity Self Limited: Yes Acute Coronary Syndrome Inclusion Criteria At DC or during hospital stay patient has or had the following: ACS DIAGNOSIS No Discharge Core Measures Meds if any: Prescribed or Continued at Discharge Meds if any: NOT Prescribed or Continued at Discharge Congestive Heart Failure Inclusion Criteria At DC or during hospital stay patient has or had the following: CHF DIAGNOSIS No Discharge Core Measures Meds if any: Prescribed or Continued at Discharge Meds if any: NOT Prescribed or Continued at Discharge Cerebrovascular accident Inclusion Criteria At DC or during hospital stay patient has or had the following: CVA/TIA Diagnosis No Discharge Core Measures Meds if any: Prescribed or Continued at Discharge Meds if any: NOT Prescribed or Continued at Discharge Venous thromboembolism Inclusion Criteria VTE Diagnosis No VTE Type NONE VTE Confirmed by (Test) NONE Discharge Core Measures - Per Current guidelines, there needs to be overlap - treatment for the first 5 days of Warfarin therapy. - If discharged on Warfarin prior to 5 days of - overlap therapy, the patient will need to be - assessed for post discharge needs including - *Post discharge parental anticoagulation - *Warfarin and/or parental anticoagulation education - *Follow up date to check INR post discharge At least 5 days overlap therapy as Inpatient No Meds if any: Prescribed or Continued at Discharge Note: Overlap Therapy is Warfarin and Anticoagulant Meds if any: NOT Prescribed or Continued at Discharge
--- NOTE | 2017-03-31 12:15 | NUR ---
1200 PT CALLED ME INTO ROOM HE WAS SITTING AT THE EDGE OF THE BED TALKING WITH HIS SON. PT STATED HE WAS FEELINING DIZZY AND IT STARTED ABOUT 10 MIN AGO AND IT MAKES IT WORSE WHEN HE TURNS HIS HEAD FROM SIDE TO SIDE. BP SITTING WAS 142/100 HR 84, PB STANDING 138/100 HR 85. PT INSTRUCTED TO LAY DOWN IN BED. 1205 SUPERVISOR ASSEMBLING EVE AWARE AND INSTRUCTED TO STOP FLUIDS AND WILL ASSESS PT. WILL CONTINUE TO MONITOR PT.
[2017-03-31 13:28] VITALS: BP 132/94
--- NOTE | 2017-03-31 13:50 | PN- Student ---
AIDA HURT 03/31/17 1339: Subjective Subjective: Today Mr. Todd is feeling well. He has not had any syncopal episodes and has not complained of any dizziness or vision problems. He denies any chest pain, palpitations, or dyspnea. He does not report any urinary problems or nausea/ vomitting. Objective Objective: Vital Signs Date Time Temp Pulse Resp B/P B/P Pulse O2 O2 Flow FiO2 Mean Ox Delivery Rate 03/31 1328 80 132/94 03/31 0800 Room Air 03/31 0759 98.4 69 16 120/98 95 Room Air 03/31 0143 97.9 76 20 100/70 98 Room Air 03/30 1737 98.2 87 15 109/70 98 Room Air 03/30 1732 Room Air 03/30 1627 Room Air 03/30 1625 97.0 86 22 120/81 Room Air 03/30 1506 96.7 82 18 112/71 97 Room Air Intake & Output 03/31 1600 03/31 0800 03/31 0000 Intake Total 720 420 Output Total Balance 720 420 Intake, IV 600 300 Intake, Oral 120 120 Patient 156 lb Weight Weight Reported by Patient Measurement Method Telemetry: Sinus rhythm, 1st degree HB ([place]- 0.28), Sinus bradycardia 56-76 (50 @ 0600) Labs: 24 hr fluid- 720 (1140 since admission), glucose- 131, K- 4.3, BUN/Cr- 17/ 1.1, GFR- >60 Note- EEG performed today which showed no evidence of seizure disorder. PE: General- no acute distress, healthy appearing man that is alert and oriented x 3. HEENT- atruamatic, MIRIAM, membranes moist and pink, no auricular discharge, no visual disturbances Neck- no thyromegaly or lymphadenopathy, no JVD, trachea is midline CV- S1 and S2 appreciated, no murmurs or rubs. peripheral pulses full bilaterally Chest- equal chest rise bilaterally, vesicular sounds heard throughout all lung barajas to auscultation Abd- soft and non-tender to palpation, bowel sounds are heard. no distention noted. Ext- 5/5 strength x all 4 extremities. no edema present Skin- warm and well perfused, no lesions noted. Neuro- cranial nerves II-XII intact bilaterally, no sensory deficits noted. Results Results: Laboratory Tests 03/31/17 0628: Anion Gap 11, Estimated GFR > 60, BUN/Creatinine Ratio 15.5, CBC w Diff NO MAN DIFF REQ, RBC 4.56 L, MCV 78.8 L, MCH 25.3 L, RDW 14.4, MPV 9.5, Gran % 42.6, Lymphocytes % 47.0, Monocytes % 6.5, Eosinophils % 2.7, Basophils % 1.2, Absolute Granulocytes 2.7, Absolute Lymphocytes 3.0, Absolute Monocytes 0.4, Absolute Eosinophils 0.2, Absolute Basophils 0.1, PUBS MCHC 32.2 L 03/30/17 1818: Troponin I < 0.01, Prolactin 16.5 03/30/17 1520: Urine Opiates Screen < 100.00, Methadone Screen < 40, Barbiturate Screen < 60, Ur Phencyclidine Scrn < 6.00, Amphetamines Screen < 100, U Benzodiazepines Scrn < 85, Urine Cocaine Screen < 50, Urine Cannabis Screen < 5.00, Urine Color YEL, Urine Clarity CLEAR, Urine pH 6.0, Ur Specific [place] 1.020, Urine Protein NEG, Urine Ketones NEG, Urine Nitrite NEG, Urine Bilirubin NEG, Urine Urobilinogen 1.0, Ur Leukocyte Esterase NEG, Ur Microscopic EXAM NOT REQUIRED, Urine Hemoglobin NEG, Urine Glucose NEG 03/30/17 1137: Anion Gap 18 H, Estimated GFR 44 L, BUN/Creatinine Ratio 14.7, Glucose 131 H, Calcium 10.4 H, Iron 62, TIBC 372, Ferritin 207.0, Total Bilirubin 0.5, AST 35, ALT 38, Alkaline Phosphatase 67, Troponin I < 0.01, Total Protein 8.2, Albumin 4.6, Globulin 3.6, Albumin/Globulin Ratio 1.3, Prolactin 25.9 H, CBC w Diff NO MAN DIFF REQ, RBC 4.99, MCV 77.9 L, MCH 25.8 L, RDW 14.0, MPV 9.0, Gran % 77.4 H, Lymphocytes % 20.6, Monocytes % 1.1 L, Eosinophils % 0.6, Basophils % 0.3, Absolute Granulocytes 6.5, Absolute Lymphocytes 1.7, Absolute Monocytes 0.1 L, Absolute Eosinophils 0.1, Absolute Basophils 0, PUBS MCHC 33.2, Serum Alcohol < 10.0 Assessment/Plan Assessment: Since admission Mr. Todd's labs have improved as has his symptomology. He was repleted with fluids overnight and has his anti-hypertensive medications held. It seems that he suffered from orthostatic hypotension causing him to syncopize. This is supported by his hx of inadequate hydration during the day as well as the labs that were taken in the ED. He does not appeart to have any seizure disorder and his cardiac findings have been insignificant at this point which leads one to believe that orthostatic hypotension was the cause of his syncope. Current Medications Sig/Issac Start time Last Medication Dose Route Stop Time Status Admin Acetaminophen 650 MG Q6 03/30 1800 AC PO Fenofibrate 145 MG DAILY 03/31 1000 AC 03/31 PO 0920 Heparin Sodium 5,000 UNIT .STK-MED ONE 03/31 0534 DC (Porcine) IV 03/31 0535 Heparin Sodium 5,000 UNIT Q8 03/30 2200 AC 03/31 (Porcine) SC 1345 Sodium Chloride 1,000 ML Q10H 03/30 1515 DC / IV 03/31 1114 0604 Sodium Chloride 1,000 ML BOLUS ONE 03/30 1445 DC 05/ IV 03/30 1544 1459 Plan: Patient seems to be stable and has normal lab values. Will plan to discharge today and have him follow up with his PCP to reassess his hypertension medications. Will also recommend follow up with cardiology for possible outpatient echo to see if any underlying structural abnormalities are present that may lead to syncopy. will also need a neurology follow up to assess his questionable PMHx of seizures. Problem List: 1. Syncopy- has not had any prodromal symptoms since admission. no syncopal episodes. EEG was negative for any seizure disorders, f/u with neuro. 2. Orthostatic Hypotension- BP has improved, f/u with PCP to reassess HTN. Educate patient on the importance of proper hydration. 3. LISS- Renal functions have returned to normal. BUN- 17, Cosmetics Presser- 1.1, GFR- >60. 4. 1st degree heart block- as of now stable. patient will need to follow up with assistant professor of marine biology. SAAD KESSLER MD 04/02/17 1153: Attending MD Review Statement Attending Sign Off Attending Cosign Statement: I have: examined this patient, agreed w/resident/PA/NUCLEAR POWERPLANT SUPERVISOR. Other Findings: As above.
--- NOTE | 2017-03-31 13:51 | PN- Housestaff ---
PONCHO CAGE,EVE 03/31/17 1351: Subjective Follow-up For: Syncope Complaints: no complaints Tele-Events Since Last Visit: Sinus rhythm, sinus bradycardia, heart rate ranging from 56-76, first-degree heart block with MO interval 0.24, at 6 AM he was bradycardic to 50. Subjective: I followed up and examined the patient today. He is resting comfortably in his bed, does not have any complaints, vital signs stable, telemetry event noted above, no overnight issues. Review of Systems Constitutional: Reports: no symptoms. Objective Last 24 Hrs of Vital Signs/I&O Vital Signs Date Time Temp Pulse Resp B/P B/P Pulse O2 O2 Flow FiO2 Mean Ox Delivery Rate 03/31 1328 80 132/94 03/31 0800 Room Air 03/31 0759 98.4 69 16 120/98 95 Room Air 03/31 0143 97.9 76 20 100/70 98 Room Air Intake & Output 03/31 1600 03/31 0800 03/31 0000 Intake Total 1095 720 420 Output Total Balance 1095 720 420 Intake, IV 375 600 300 Intake, Oral 720 120 120 Patient 70.76 kg Weight Weight Reported by Patient Measurement Method Physical Exam General Appearance: Alert, Oriented X3, Cooperative, No Acute Distress Skin: No Rashes, No Breakdown, No Significant Lesion Skin Temp/Moisture Exam: Warm/Dry Sepsis Skin Exam (color): Normal for Ethnicity HEENT: Atraumatic, PERRLA, EOMI, no tongue bite Neck: Supple, No JVD Lymphatic: Cervical nl Cardiovascular: Regular Rate, Normal S1, Normal S2, No Murmurs Lungs: Clear to Auscultation, Normal Air Movement Abdomen: Normal Bowel Sounds, Soft, No Tenderness Neurological: Normal Gait, Normal Speech, grossly intact Extremities: No Clubbing, No Cyanosis, No Edema, Normal Pulses Vascular: Normal Pulses, Pulses Symmetrical Sepsis Cap Refill Exam: <2 Sec Current Medications: Current Medications Sig/Issac Start time Last Medication Dose Route Stop Time Status Admin Acetaminophen 650 MG Q6 03/30 1800 DCD PO Fenofibrate 145 MG DAILY 03/31 1000 DCD 03/31 PO 0920 Heparin Sodium 5,000 UNIT .STK-MED ONE 03/31 0534 DC (Porcine) IV 03/31 0535 Heparin Sodium 5,000 UNIT Q8 03/30 2200 DCD 03/31 (Porcine) SC 1345 Patient Medication 1 ED .STK-MED ONE 03/31 1413 DC Teaching ED 03/31 1414 Sodium Chloride 1,000 ML Q10H 03/30 1515 DC 03/31 IV 03/31 1114 0604 Last 24 Hrs of Lab/Raymond Results Last 24 Hrs of Labs/Mics: Laboratory Tests 03/31/17 0628: Anion Gap 11, Estimated GFR > 60, BUN/Creatinine Ratio 15.5, CBC w Diff NO MAN DIFF REQ, RBC 4.56 L, MCV 78.8 L, MCH 25.3 L, RDW 14.4, MPV 9.5, Gran % 42.6, Lymphocytes % 47.0, Monocytes % 6.5, Eosinophils % 2.7, Basophils % 1.2, Absolute Granulocytes 2.7, Absolute Lymphocytes 3.0, Absolute Monocytes 0.4, Absolute Eosinophils 0.2, Absolute Basophils 0.1, PUBS MCHC 32.2 L Assessment/Plan Assessment: 41 yo Male with past medical history of HTN, HLD was BIBA with complaints of dizziness and passing-out. Currently he is being managed in telemetry floor for the following issues: #Syncope, likely due to dehydration Patient had orthostatics positive, had prerenal renal failure, LISS, which has resolved with fluid resuscitation. Cardiac causes were less likely given the symptoms and a notmal EKG. History of seizure-like activity and loss of consciousness made neurological causes a differential, but EEG is negative. Patient is asymptomatic now and has no complaints, no dizziness, labs have returned to baseline. He is normotensive without his BP medication. ACS was ruled out. -patient is stable enough to be discharged without any BP meds at this point. He does needs a follow up with his PCP to assess the need of BP meds, and get a referral to prize coordinator and neurologist. He might require an outpatient Echocardiogram given first degree heart block with MO 0.24 and a cardiac assessment. -Patient has been explained about his condition and agrees to the plan. #Mild anemia With rehydration, h/h is 11.6/35.9, which can be investigated as an out patient. Iron studies normal. #Heart healthy diet #DVT prophylaxis with subcutaneous heparin #CODE STATUS full code Problem List: 1. Syncope 2. Dehydration 3. Orthostatic hypotension 4. Acute kidney injury Pain Ratin Pain Location: - Pain Goal: Pain 4 or less Pain Plan: prn Tomorrow's Labs & Rationales: - SAAD KESSLER MD 03/31/178: Attending MD Review Statement Attending Statement Attending MD Statement: examined this patient, discuss w/resident/PA/WOUND CARE RN, agreed w/resident/PA/WOUND CARE RN, reviewed EMR data (avail), discussed with nursing, discussed with case mgmt, amended to note Attending Assessment/Plan: The patient was seen and discussed with house staff. BUN/Cr normalized and no longer orthostatic. No seizure activity. No arrhythmia (1 deg AV block noted). OK to discharge to home with plan for follow-up with PCP (Mr. Carias) who may arrange OP EEG, etc. Will hold HCTZ at present. Follow-up BP check with PCP later this week. Anemia w/u as OP (chronic with slight decrease H/H due to IV hydration).
--- NOTE | 2017-03-31 23:18 | Discharge Summary ---
Visit Information Visit Dates Admission Date: 03/30/17 Discharge Date: 03/31/17 Hospital Course Course Attending Physician: SAAD KESSLER MD [facility]: 41 yo Male with past medical history of HTN, HLD was brought in by ambulance with complaints of dizziness and passing-out while at work. He was alert, and oriented at presentation, but complained of dizziness. He was managed in telemetry floor for the following issues: #Syncope, likely due to dehydration Patient had orthostatics positive, had prerenal renal failure, LISS, which resolved with fluid resuscitation. Cardiac causes were less likely given the symptoms and a notmal EKG. History of seizure-like activity and loss of consciousness made neurological causes oneof the differentials, but EEG is negative. Patient's complaint improved significantly after one day of admission with IV fluids. He had no complaints, no dizziness, and the labs which showed initial pre-renal failure-like picture returned to baseline. He was normotensive without his BP medication. ACS was ruled out with EKGs and troponin trends. On the day of discharge, patient was stable, and asymptomatic. Of note, his BP meds were held due to low BP and later normotension. He however, will likely require to restart the meds, but has been advised to record his BP daily/twice daily, and report it to his PCP or supervisor assembly department, and then plan further regarding the meds. He might require an outpatient Echocardiogram given first degree heart block with [place] 0.24 and a cardiac assessment. Patient has been explained about his condition and agrees to the plan. Other issues, that were noted during this admission, although not extensively worked upon are Mild anemia (h/h is 11.6/35.9), which can be investigated as an out patient. Iron studies normal. #Heart healthy diet #DVT prophylaxis with subcutaneous heparin #CODE STATUS full code Allergies: Coded Allergies: NO KNOWN ALLERGIES (12/31/14) Significant Procedures: EEG: Interpretation: The waking background is dominated by low amplitude generalized beta frequency activity with some intermixed low to moderate amplitude posterior alpha noted from time to time. In drowsiness there is intermixed slower theta also generalized in pattern and occasional vertex waves drowsiness appear. No further sleep rhythms detected. No focal, lateralized or epileptiform abnormalities. Hyperventilation and photic stimulation had no additional information Impression: Normal EEG in the states of wakefulness and drowsiness. No focal or epileptiform abnormalities identified. DICTATED BY: STEPH RODRIGUEZ MD DATE/TIME DICTATED:03/31/17848 INDUSTRIAL DESIGN ENGINEER:RCIHARD DATE/TIME TRANSCRIBED:03/31/17848 REPORT NUMBER:[id number] CT Head: FINDINGS: There is no acute intracranial hemorrhage or abnormal extra-axial collection. No intracranial mass effect or midline shift. Lateral and third ventricles are normal. No hydrocephalus. Morse-white matter differentiation is preserved and there is no evidence of acute territorial infarct. The calvarium and skull base are intact. Mastoid air cells and middle ear cavities are well aerated. Visualized paranasal sinuses are well aerated. IMPRESSION: Normal CT scan of the head. DICTATED BY: BAN CAGE,FADI Abbott DATE/TIME DICTATED:03/30/171244 INDUSTRIAL DESIGN ENGINEER:CINTHYA DATE/TIME TRANSCRIBED:03/30/171244 Pertinent Lab Results: On the day of discharge: Last 24 Hrs of his discharge Labs/Mics: Laboratory Tests 03/31/17 0628: Anion Gap 11, Estimated GFR > 60, BUN/Creatinine Ratio 15.5, CBC w Diff NO MAN DIFF REQ, RBC 4.56 L, MCV 78.8 L, MCH 25.3 L, RDW 14.4, MPV 9.5, Gran % 42.6, Lymphocytes % 47.0, Monocytes % 6.5, Eosinophils % 2.7, Basophils % 1.2, Absolute Granulocytes 2.7, Absolute Lymphocytes 3.0, Absolute Monocytes 0.4, Absolute Eosinophils 0.2, Absolute Basophils 0.1, PUBS MCHC 32.2 L Disposition Summary Disposition Principal Diagnosis: Syncope LISS, secondary to dehydration 1st degree heart block Additional Diagnosis: HTN (meds on hold), Hyperlipidemia Discharge Disposition: home or self care Discharge Instructions General Discharge Information Code Status: Full Code Patient's Diet: Heart healthy Patient's Activity: As tolerated Follow-Up Instructions/Appts: Please follow up with your PCP within ellen-ten days of discharge. You blood pressure medication is on hold for now due to low blood pressure while in the hospital. Please try to get BP reading after discharge and follow up with either PCP or supervisor assembly department to restart your BP medication. Please follow up with supervisor assembly department within ten days of discharge, plan for Echocardiogram can be done upon follow up. A referral has been given to you below. Please follow up with Neurology with EEG within seven days of discharge. Referral per your PCP. Please return to emergency if symptoms worsen. Medications at Discharge Discharge Medications: Stop taking the following medications: Hydrochlorothiazide (Hydrochlorothiazide) 12.5 MG CAPSULE ORAL DAILY Qty = 90 Valsartan (Diovan) 160 MG TABLET ORAL DAILY Qty = 90 Continue taking these medications: Fenofibrate Nanocrystallized (Fenofibrate) 145 MG TABLET 1 Tablet ORAL DAILY Qty = 90 Comments: Last Taken: 03/31/17 Time: 9AM Copies To: LIZ VELASCO APRN, MD, W NEIL Attending MD Review Statement Documenting Attending: SAAD KESSLER MD Other Findings: Agree with plan of care upon discharge.
== END 2017-03-31 15:50 | DRG 204 ==
LOC: ERH 11:26 → ERHI 14:11 → 1NO 14:11 → ENRESERV 15:31 → 1NO 17:15 → ENPENDDIS 03-31 15:22 → 1NO 03-31 15:50
PROVIDERS: Emergency Medicine; Internal Medicine; ADMIT Internal Medicine
DX: I95.1 Orthostatic hypotension (principal); N17.9 Acute kidney failure, unspecified; E86.0 Dehydration; N28.9 Disorder of kidney and ureter, unspecified; I10 Essential (primary) hypertension; E78.5 Hyperlipidemia, unspecified; D64.9 Anemia, unspecified
CPT/HCPCS: 1NP; 80307; 81003; 82436; 93005; 93010; 95816; 96360; 96361; G0480; J1644

== ENCOUNTER 2018-03-07 22:30 | Emergency (ER) | payer OTHER ==
[~2018-03-07] VITALS: Ht 172.7 cm; Wt 68.0 kg
[~2018-03-07 22:30] MED LIST changes: +DIOVAN160 MG PO; +FENOFIBRATE145 M1 PO; +HYDROCHLOROTH12.5 M3 PO
[2018-03-07 22:33] VITALS: BP 187/98
--- NOTE | 2018-03-07 22:38 | ED INFLUENZA/URI COMPLAINT ---
History of Present Illness General Chief Complaint: Fever Stated Complaint: FEVER,SORE THROAT,HEADACHE Source: patient, family, old records Exam Limitations: no limitations Vital Signs & Intake/Output Vital Signs & Intake/Output Vital Signs Date Time Temp Pulse Resp B/P B/P Pulse O2 O2 Flow FiO2 Mean Ox Delivery Rate 03/073 98.5 109 18 187/98 98 Room Air ED Intake and Output 03/08 0000 03/07 1200 Intake Total Output Total Balance Patient 150 lb Weight Allergies Coded Allergies: NO KNOWN ALLERGIES (12/31/14) Reconcile Medications Codeine Phosphate/Guaifenesi (Guaifen-Codeine 100-10 MG/5 Ml) 10 MG-100 MG/5 ML LIQUID 10 ML PO Q6HR PRN COUGH Fenofibrate Nanocrystallized (Fenofibrate) 145 MG TABLET 1 TAB PO DAILY CHOLESTEROL (Reported) Oseltamivir Phosphate (Tamiflu) 75 MG CAPSULE 1 CAP PO BID viral Triage Nurses Notes Reviewed? yes Onset: Gradual Duration: day(s): (3), constant Timing: recent history Severity: mild Severity Numbers: 3 Prior Episodes/Possible Cause: no prior episodes No Modifying Factors: none Associated Symptoms: nasal congestion, nasal drainage, sore throat HPI: 42-year-old male with no medical history nonsmoker presents to ER complaining with 3 day history of generalized body aches malaise sore throat nonproductive cough fever. No abdominal pain nausea vomiting diarrhea. He has taken Motrin for his fever with improvement. No sick contacts no recent travel. No chest pain shortness of breath (Matt Rivas) Past History Travel History Traveled to [place] past 21 day No Medical History Any Pertinent Medical History? see below for history Neurological: NONE EENT: NONE Cardiovascular: hypertension Respiratory: NONE Gastrointestinal: NONE Hepatic: NONE Renal: KIDNEY STONES Musculoskeletal: NONE Psychiatric: NONE Endocrine: NONE Blood Disorders: NONE Cancer(s): NONE BATH SOLUTION [employer]ER/Reproductive: NONE History of MRSA: No History of VRE: No History of CDIFF: No Surgical History Surgical History: urolithotripsy Psychosocial History Who do you live with Spouse Services at Home None What is your primary language Faroese Tobacco Use: Never used Family History Hx Contributory? No (Matt Rivas) Review of Systems Review of Systems Constitutional: Reports: see HPI. Comments Review of systems: See HPI, All other systems negative. Constitutional, fever HEENT: sore throatcongestion, no ear pain Cardiovascular: No chest pain , no palpitation Skin: no rashes, no change in skin Respiratory: No dyspnea no cough no sputum GI: No nausea no vomiting, no diarrhea Muscle skeletal: No joint pain, no back pain, no neck pain Neurologic: , no headache Heme/endocrine: No bruising Immunology: No lymphadenopathy (Matt Rivas) Physical Exam Physical Exam General Appearance: well developed/nourished, no apparent distress, alert Ears, Nose, Throat: moist mucous membrane Comments: Well-developed well-nourished patient in no apparent distress. Head/Face: Atraumatic, no maxillary/frontal sinus tenderness, no facial swelling Eyes: PERRL, EOMI, no conjunctival injection. No nystagmus Ear:External auditory canal and Tympanic membranes clear, no erythema, no FB. Nose: atraumatic.Normal inspection: No bleeding, no septal hematoma Throat: Moist mucous membranes.Pharynx normal. No pharyngeal erythema/exudate seen. No stridor/drooling or assymetry. No swelling or edema. Neck: Supple, no lymphadenopathy, FROM Back: FROM Cardiovascular: Regular rate and rhythms no murmurs rubs or gallops, Respiratory: Chest nontender.There were no bony deformities, no asymmetry. No respiratory distress. Patient speaking in full complete sentences. Breath sounds clear to auscultation bilaterally: NO W/R/R Extremities: full range of motion Neuro: awake, alert, and oriented to person, place and time. There were no obvious focal neurologic abnormalities. Skin: Warm & dry;No appreciable rash on exposed skin Psych: Mood affect normal, normal memory normal judgment. Core Measures Sepsis Present: No Sepsis Focused Exam Completed? No (Matt Rivas) Progress Differential Diagnosis: influenza, otitis, pneumonia, pharyngitis, sinusitis Plan of Care: Orders Procedure Date/time Status RAPID VIRAL INFLUENZA A 03/07 2235 Complete THROAT CULTURE W/QUICK STREP 03/07 2235 Active Microbiology 03/07 2235 NASOPHARYN: Influenza Virus A & B Rapid Smear - COMP I discussed with the patient at length all of their results. I had an extensive conversation regarding need for close follow up with their primary care physician this week as well as return precautions. I answered all of their questions, they feel comfortable with the plan and follow-up care. I discussed with the patient/family the medications that they will receive. I gave them signs and symptoms that could indicate an adverse reaction. I have advised them to limit their activities until they can see how they respond to the medication. Initial ED EKG: none (Matt Rivas) Departure Departure Time of Disposition: 2309 Disposition: HOME OR SELF CARE Condition: Stable Clinical Impression Primary Impression: Viral syndrome Referrals: Benji Carias APRN (PCP/Family) Additional Instructions: Tamiflu as directed. Interchange, Motrinand tylenol every 4-6 hours. Guaifensin with codeine for cough-this may make you drowsy. drink plenty of fluids. return with any concerns Departure Forms: Customer Survey General Discharge Information Prescriptions: Current Visit Scripts Oseltamivir Phosphate (Tamiflu) 1 CAP PO BID #10 CAP Codeine Phosphate/Guaifenesi (Guaifen-Codeine 100-10 MG/5 Ml) 10 ML PO Q6HR PRN COUGH #150 ML (Matt Rivas) PA/DIRECTOR OF STUDENT AFFAIRS Co-Sign Statement Statement: ED Attending supervision documentation- [] I saw and evaluated the patient. I have also reviewed all the pertinent lab results and diagnostic results. I agree with the findings and the plan of care as documented in the PA's/DIRECTOR OF STUDENT AFFAIRS's documentation. [x] I have reviewed the ED Record and agree with the PA's/DIRECTOR OF STUDENT AFFAIRS's documentation. [] Additions or exceptions (if any) to the PAs/DIRECTOR OF STUDENT AFFAIRS's note and plan are summarized below: [] (Clotilde CAGE,[place])
[2018-03-07] MEDS ORDERED: GUAIFEN-CODEIN118 M1 PO (23:12)
[2018-03-07] MEDS ORDERED: TAMIFLU75 M1 PO (23:12)
== END 2018-03-07 23:20 ==
LOC: ERH 22:30
DX: B34.9 Viral infection, unspecified (principal)
CPT/HCPCS: 87804; 87804-59